=== PATIENT | male | born 1965 | race Caucasian/White ===

== ENCOUNTER 2025-06-25 14:04 | Outpatient (REF) | payer BC, SELFPAY ==
--- NOTE | 2025-06-25 | EMG_ITS ---
Chief complaint: Left foot drop Reason for referral: Foot drop, right foot Referred by:?Brian Cornejo Procedure done: Right lower extremity NCS/EMG Right tibial and peroneal motor studies were performed with the F-waves and tibial H response was obtained. Right superficial peroneal and sural sensory studies were performed an EMG needle examination was performed. Right peroneal and tibial motor responses were absent with absent F responses an H-reflex. On the sensory side, right superficial peroneal amplitude was somewhat diminished with slow conduction velocity in 30s. Sural response revealed normal amplitude and conduction velocity. Needle examination revealed fibs and positive sharp waves in tibialis anterior, medial gastrocs, short a biceps and vastus lateralis. Impression: Right lumbosacral plexopathy. If not done before, imaging of right lumbosacral plexus/sciatic areas recommended. MTDD
--- OUTSIDE RECORDS SUMMARY | 2025-06-25 17:18 | XMS_ITS | Clinical Summary ---
Author Organization [facility] Address [address] [place] [id number] Phone Care Team Providers Care Peoplesoft Analyst Name Role Phone Riri Blandon MD Primary Care Provider [phone] Allergies No known active allergies Medications No known medications Active Problems No known active problems Social History Tobacco Use Types Packs/Day Years Used Date Smoking Tobacco: Former Smokeless Tobacco: Never Alcohol Use Standard Drinks/Week Comments Yes 0 (1 standard drink = 0.6 oz pur e alcohol) very little Education Answer Date Recorded Are you interested in more education? Not on myriam e 01/14/2023 Are you concerned about learning? Not on file 01/14/2023 No 01/14/2023 No 01/14/2023 Digital Access Answer Date Recorded No 02/12/2023 No 02/12/2023 No 02/12/2023 Reliable internet access at home? Not on file 02/12/2023 Device with a working camera? Not on file Sex and Gender Information Value Date Recorded Sex Assigned at Male 06/03/2018 6:12 PM EDT Legal Sex Male 9:39 PM EDT Gender Identity Male 06/03/2018 6:12 PM EDT Sexual Orientation Not on file Last Filed Vital Signs Vital Sign Reading Time Taken Comments Blood Pressure 128/76 12/07/2021 10:24 AM EDT Pulse 69 12/07/2021 10:24 AM EDT Temperature 36.2 C (97.1 F) 12/07/2021 10:24 AM EDT Respiratory Rate 16 12/07/2021 10:24 AM EDT Oxygen Saturation 99% 12/07/2021 10:24 AM EDT Inhaled Oxygen Concentration - - Weight 89.8 kg (198 lb) 12/07/2021 10:24 AM EDT Height 180.3 cm (5' 11 ) 12/07/2021 10:24 AM EDT Body Mass Index 27.62 12/07/2021 10:24 AM EDT Plan of Treatment Health Maintenance Due Date Last Done Comments LIPID PANEL 1967 DEPRESSION SCREENING 1979 SMOKING Hx and SMOKELESS TOBACCO SCREENING 1980 HEPATITIS C SCREENING 1985 HIV ONE-TIME SCREENING (18-6 5 YEARS) 1985 COLOGUARD 2012 COLONOSCOPY 2012 COLORECTAL CANCER SCREENING 2012 FIT TEST 2012 FOBT 2012 SIGMOIDOSCOPY 2012 VIRTUAL COLONOSCOPY 2012 PNEUMOCOCCAL VACCINES (50+ years) (1 of 1 - PCV) 2017 ZOSTER VACCINES (1 of 2) 2017 INFLUENZA VACCINE (#1) 2025 2, 07/11/2019, 10/02/2012 COVID-19 VACCINE (2023-2 5 season) 2025 Adult Td,Tdap Booster 04/07/2026 04/07/2016 HEPATITIS A VACCINES Aged Out No long er eligible based on patient's age to complete this topic HIB VACCINES Aged Out No longer eligi ble based on patient's age to complete this topic MENINGOCOCCAL VACCINES (ACWY) Aged Out No longer eligible based on patient's age to complete this topic MENINGOCOCCAL VACCINES (B) Aged Out N o longer eligible based on patient's age to complete this topic Medical Devices Not on file [facility] POS HMO POS HMO POS HMO [place] [address] [place] [address] [address] [id number] [place] [address] HMO POS [facility] HMO POS [employer] [address] Care Teams Peoplesoft Analyst Relationship Specialty Start Date End Date Riri Blandon MD PCP - General Internal Medicine 10/28/21 Additional Source Comments The information contained in this document represents components of the legal health record. It is not the complete legal health record.[facility]
--- OUTSIDE RECORDS SUMMARY | 2025-06-25 17:18 | XMS_ITS | Clinical Summary ---
Author Organization [facility] [address] [facility] Address [address] [place], [place] Phone Care Team Providers Care Monitoring Analyst Name Role Phone Ge Interiano MD Primary Care Provider [phone] Allergies No known active allergies Medications diclofenac (VOLTAREN) 1 % topical gel 10/29/2021 Active dexAMETHasone (DECADRON) 4 mg tabletIndicatio ns:Right foot drop Take 1 tablet (4 mg total) by mouth 4 (four) times a day for 4 days. 16 each 05/23/2025 Active famotidine (Pepcid) 20 mg tabletIndicatio ns:Right foot drop Take 1 tablet (20 mg total) by mouth 2 (two) times a day for 7 days. Take while on steroids, to protect your stomach. Do not take NSAIDS while on the steroids. 14 each 05/23/2025 05/30/20 25 Active Problems Problem Noted Date Diagnosed Date Right foot drop 05/23/2025 Assessment & Plan (05/23/2025 4:34 PM EDT): Mr. Carter describes weakness in the right ankle since mid February. At first he had significant pain in the leg and a mixed L5 and S1 distribution. The pain has largely resolved but he does admit to some paresthesias in the lower extremity. His main complaint is weakness. He has been in physical therapy since February. On exam he has 5 out of 5 strength in all major muscle groups of the upper and lower extremities with the exception of right sided dorsiflexion which was 3 out of 5 and plantarflexion which was 4- out of 5. He was unable to stand up on the toes of the right foot alone. When he ambulated his right foot slapped. Deep tendon reflexes were 1-2+ and symmetric with the exception of the right ankle jerk which was absent. Recent x- rays of the lumbar spine from [facility] revealed mild degenerative changes with some loss of disc height at L5-S1. I am going to give him a prescription for dexamethasone with Pepcid for GI prophylaxis. I am ordering a stat MRI of the lumbar spine. I anticipate he will need an urgent discectomy. 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 09/20/2024 Overview (09/20/2024): EKG 11/2016 Herpes 08/02/2014 Encounters Date Type Department Care Team Description 05/28/2025 Telephone Neurosurgery [address] [phone] Brian Cornejo PA 05/27/2025 11:23 AM EDT - 05/27/2025 11:59 PM EDT Hospital Encounter [facility] MRI [address] [place] [id number] Right foot drop Discharge Disposition: Home or Self Care 05/27/2025 10:00 AM EDT Treatment Outpatient Rehabilitation - [address] [phone] Lucio Grullon, PT Right leg pain (Primary Dx); Calf muscle weakness 05/23/2025 2:30 PM EDT Consult [address] [phone] Brian Cornejo PA Steppage gait; Right foot drop 05/23/2025 11:00 AM EDT Treatment Outpatient Rehabilitation - [address] [phone] Lucio Grullon, PT Right leg pain (Primary Dx); Calf muscle weakness 05/21/2025 11:00 AM EDT Treatment Outpatient Rehabilitation - [place] [address] [place], [place] [phone] Phoebe Arriaga H, ALMOND HULLER Right leg pain (Primary Dx); Calf muscle weakness 05/16/2025 10:00 AM EDT Treatment Outpatient [address] [phone] Pohebe Arriaga H, ALMOND HULLER Right leg pain (Primary Dx); Calf muscle weakness 05/14/2025 10:30 AM EDT Treatment Outpatient [address] [phone] Phoebe Arriaga H, ALMOND HULLER Right leg pain (Primary Dx); Calf muscle weakness 05/09/2025 11:30 AM EDT Treatment Outpatient [address] [phone] Lucio Grullon, PT Right leg pain (Primary Dx); Calf muscle weakness 05/07/2025 11:30 AM EDT Treatment Outpatient [address] [phone] Phoebe Arriaga H, ALMOND HULLER Right leg pain (Primary Dx); Calf muscle weakness 05/03/2025 11:30 AM EDT Treatment Outpatient [address] [phone] Phoebe Arriaga H, ALMOND HULLER Right leg pain (Primary Dx); Calf muscle weakness 04/29/2025 11:00 AM EDT Evaluation Outpatient [address] [phone] Lucio Grullon, PT Right leg pain; Calf muscle weakness 04/29/2025 Plan of Care Documentation Outpatient [address] [phone] 04/05/2025 Telephone Adult Medicine [address] [phone] Glendy Velasquez NP 03/25/2025 10:48 AM EDT - 03/25/2025 11:59 PM EDT Hospital Encounter Radiology Department - [address] [phone] Calf muscle weakness Discharge Disposition: Home or Self Care from Last 3 Months Immunizations Immunization Administration Dates Next Due Influenza Quadravalent, MDCK , 0.5ml, preservative free (Flucelvax) 6mo and older 07/27/2022 Influenza trivalent, with pr eservative (Fluzone; Afluria) 6mo and older 07/11/2019,10/02/2012 PPD Test 04/12/2001 Tdap Tetanus diptheria acell ular pertussis (Boostrix; Adacel) 7yo and older 04/07/2016 Medical History Medical History Date Comments Red-green color blindness DX:Red -green color blindness Incomplete RBBB DX:Incomplete RB BB; COMMENT: EKG 11/2016 Family History Medical History Relation Name Comments Other: oliviachase limakhadra dz Paternal Grandmother Relation Name Status Comments Father Alive healthy Maternal Grandfather old age Maternal Grandmother old age Mother Alive healthy Paternal Grandfather old age Paternal Grandmother Olivia Taylor r Dis Sister Alive 1 sister age 34 , healthy Son Alive 2 sons ages 11 and 14, healthy Sebas and Tee Social History Tobacco Use Types Packs/Day Years Used Date Smoking Tobacco: Former Smokeless Tobacco: Former Tobacco Cessation:Counseling Given: Not Answered Alcohol Use Standard Drinks/Week Comments Not Asked 0 (1 standard drink = 0.6 oz pur e alcohol) Sex and Gender Information Value Date Recorded Sex Assigned at Not on file Legal Sex Male 4:46 AM EST Gender Identity Not on file Sexual Orientation Not on file Obstetrics History Last Filed Vital Signs Vital Sign Reading Time Taken Comments Blood Pressure 139/89 02/27/2025 4:46 PM EDT Pulse 78 02/27/2025 4:46 PM EDT Temperature 36.6 C (97.8 F) 02/27/2025 4:46 PM EDT Respiratory Rate 14 02/27/2025 4:46 PM EDT Oxygen Saturation 96% 02/27/2025 4:46 PM EDT Inhaled Oxygen Concentration - - Weight 83.9 kg (185 lb) 05/23/2025 3:04 PM EDT Height 180.3 cm (5' 11 ) 05/23/2025 3:04 PM EDT Body Mass Index 25.8 05/23/2025 3:04 PM EDT Plan of Treatment Health Maintenance Due Date Last Done Comments Colorectal Cancer Screening: Colonoscopy 1967 Hepatitis B Vaccines (1 of 3 - 19+ 3-dose series) 1986 Pneumococcal Vaccine: 50+ Years (1 of 1 - PCV) 2017 HIV Screening 08/28/2022 Social Influencers of Health Screening 08/28/2022 Depression Screening 09/19/2024 COVID-19 Vaccine (1 - 2023-2 5 season) 2025 Influenza Vaccine (#1) 2025 , 07/11/2019, 10/02/2012 Zoster Vaccines (2 of 2) 06/08/2025 04/13/2025 DTaP,Tdap,and Td Vaccines (2 - Td or Tdap) 04/07/2026 04/07/2016 Cholesterol Screening (Lipid Panel) 07/27/2027 07/27/2022 RSV Immunization Adult Patients (1 - 1-dose 75+ series) 2042 Hepatitis C Screening Completed 07/27/2022 HIB Vaccines Aged Out No longer eligi ble based on patient's age to complete this topic HPV Vaccines Aged Out No longer eligi ble based on patient's age to complete this topic Hepatitis A Vaccines Aged Out No long er eligible based on patient's age to complete this topic IPV Vaccines Aged Out No longer eligi ble based on patient's age to complete this topic MMR Vaccines Aged Out No longer eligi ble based on patient's age to complete this topic Meningococcal ACWY Vaccine Aged Out N o longer eligible based on patient's age to complete this topic Meningococcal B Vaccine Aged Out No l onger eligible based on patient's age to complete this topic RSV Immunization Patients Under 20 months Aged Out No longer eligible b ased on patient's age to complete this topic Varicella Vaccines Aged Out No longer eligible based on patient's age to complete this topic Procedures Procedure Name Priority Date/Time Associated Diagnosis Comments MR LUMBAR SPINE WO CONTRAST Routine 05/27/2025 12:40 PM EDT Right foot drop VAS US DUPLEX LOWER EXT VENOUS RIGHT STAT 03/25/2025 11:07 AM EDT Calf muscle weakness HM HEPATITIS C SCREENING Routine 07/27/2022 LIPID PANEL Routine 07/27/2022 from Last 3 Months or Most Recently Relevant to Health Maintenance Results * MR Lumbar Spine wo Contrast (05/27/2025 12:40 PM EDT) Anatomical Region Laterality Modality L-spine, Spine Magnetic Resonan ce 05/29/2025 2:43 PM EDT Impressions 05/29/2025 2:46 PM EDT Degenerative changes of the L5-S1 vertebral endplates eccentric to the left. Other less pronounced degenerative changes as detailed above. No high-grade spinal or foraminal stenosis. -------- FINAL REPORT -------- Dictated By: Pradip Malcolm Dictated Date: 05/29/2025 14:43 ET Assigned Physician: Pradip Malcolm Reviewed and Electronically Signed By: Pradip Malcolm Signed Date: 05/29/2025 14:46 ET Workstation ID: [id number] Transcribed By: Self Edit Transcribed Date: 05/29/2025 14:43 ET Narrative 05/29/2025 2:46 PM EDT PROCEDURE: MRI of the lumbar spine without contrast. TECHNIQUE: Multiplanar multisequence MRI of the lumbar spine without intravenous contrast administration. HISTORY: Low back pain, progressive neurologic deficit COMPARISON: Radiographs dated 03/18/2025. FINDINGS: The paraspinous soft tissues are unremarkable. No compression deformity. Modic endplate changes at L5-S1. No concerning marrow infiltrative lesion. Normal position of the conus at L1. Lumbar disc levels: L1-2: No significant disc or facet abnormality. No spinal or foraminal stenosis. L2-3: Mild endplate irregularity. Small anterior endplate osteophytes. No spinal or foraminal stenosis. L3-4: Minimal endplate irregularity with minimal anterior endplate osteophytes and minimal bilateral facet arthropathy. No spinal or foraminal stenosis. L4-5: Minimal endplate irregularity. Mild bilateral facet arthropathy. No spinal or foraminal stenosis. L5-S1: Moderate asymmetric left-sided disc space height loss and endplate irregularity. Small disc osteophyte complex eccentric to the left. Minimal bilateral facet arthropathy. Mild left foraminal stenosis. No spinal stenosis. Procedure Note Pradip Malcolm MD - 05/29/2025 PROCEDURE: MRI of the lumbar spine without contrast. TECHNIQUE: Multiplanar multisequence MRI of the lumbar spine withoutintravenous contrast administration. HISTORY: Low back pain, progressive neurologic deficit COMPARISON: Radiographs dated 03/18/2025. FINDINGS: The paraspinous soft tissues are unremarkable. No compression deformity. Modic endplate changes at L5-S1. No concerningmarrow infiltrative lesion. Normal position of the conus at L1. Lumbar disc levels: L1-2: No significant disc or facet abnormality. No spinal or foraminalstenosis. L2-3: Mild endplate irregularity. Small anterior endplate osteophytes.No spinal or foraminal stenosis. L3-4: Minimal endplate irregularity with minimal anterior endplateosteophytes and minimal bilateral facet arthropathy. No spinal orforaminal stenosis. L4-5: Minimal endplate irregularity. Mild bilateral facet arthropathy.No spinal or foraminal stenosis. L5-S1: Moderate asymmetric left-sided disc space height loss and endplateirregularity. Small disc osteophyte complex eccentric to the left.Minimal bilateral facet arthropathy. Mild left foraminal stenosis. Nospinal stenosis. IMPRESSION: Degenerative changes of the L5-S1 vertebral endplates eccentric to theleft. Other less pronounced degenerative changes as detailed above. Nohigh-grade spinal or foraminal stenosis. -------- FINAL REPORT -------- Dictated By: Pradip Malcolm Dictated Date: 05/29/2025 14:43 ET Assigned Physician: Pradip Malcolm Reviewed and Electronically Signed By: Pradip Malcolm Signed Date: 05/29/2025 14:46 ET Workstation ID: [id number] Transcribed By: Self Edit Transcribed Date: 05/29/2025 14:43 ET us Brian SILVA IMG MRI PROCEDURES Final Resu lt * Vascular US duplex lower extremity venous right (03/25/2025 11:07 AM EDT) Anatomical Region Laterality Modality Vascular, Abdomen Ultrasound 03/25/2025 11:2 5 AM EDT Impressions 03/25/2025 11:27 AM EDT No evidence of deep venous thrombosis in the right lower extremity. POS - [id number] -------- FINAL REPORT -------- Dictated By: Cary Cole Dictated Date: 03/25/2025 11:25 ET Assigned Physician: Cary Cole Reviewed and Electronically Signed By: Cary Cole Signed Date: 03/25/2025 11:27 ET Workstation ID: [id number] Transcribed By: Self Edit Transcribed Date: 03/25/2025 11:25 ET Narrative 03/25/2025 11:27 AM EDT EXAM: Limited extremity veins ultrasound HISTORY: Calf pain. COMPARISON: None FINDINGS: Duplex Doppler scanning of the deep venous system of the right lower extremity is performed. Scanning is performed from the proximal common femoral vein and greater saphenous confluence through the popliteal vein. All veins of the deep venous system are normally compressible. Normal Doppler flow is demonstrated within them. Augmentation maneuvers are normal. Calf veins are normally compressible. No popliteal cyst. Procedure Note Cary Cole MD - 03/25/2025 EXAM: Limited extremity veins ultrasound HISTORY: Calf pain. COMPARISON: None FINDINGS: Duplex Doppler scanning of the deep venous system of the right lowerextremity is performed. Scanning is performed from the proximal commonfemoral vein and greater saphenous confluence through the popliteal vein. All veins of the deep venous system are normally compressible. NormalDoppler flow is demonstrated within them. Augmentation maneuvers arenormal. Calf veins are normally compressible. No popliteal cyst. IMPRESSION: No evidence of deep venous thrombosis in the right lower extremity. POS - [id number] -------- FINAL REPORT -------- Dictated By: Cary Cole Dictated Date: 03/25/2025 11:25 ET Assigned Physician: Cary Cole Reviewed and Electronically Signed By: Cary Cole Signed Date: 03/25/2025 11:27 ET Workstation ID: [id number] Transcribed By: Self Edit Transcribed Date: 03/25/2025 11:25 ET Glendy Velasquez CARD SERVICES SPECIALIST CV VASCULAR PROCEDURES Final Result * Hepatitis C Screening (07/27/2022) Hepatitis C Screening Abstracted Historical Provider HEALTH MAINTENANCE Final Result * (ABNORMAL) Lipid panel (07/27/2022) LDL/HDL Ratio 3 0 - 4 Triglycerides 89 0 - 150 mg/dL Cholesterol 200 0 - 200 mg/dL HDL 64 >=40 mg/dL LDL Cholesterol 119(A) 0 - 100 mg/dL Blood Venous blood specimen / Unknown Historical Provider LAB BLOOD ORDERABLES Bruna l Result from Last 3 Months or Most Recently Relevant to Health Maintenance [place] [address] [place] [address] Care Teams Monitoring Analyst Relationship Specialty Start Date End Date Ge Interiano MD [address] [place] [phone] PCP - General Internal Medicine 06/23/21
== END 2025-06-25 14:05 | disposition home or self-care (01) ==
LOC: HO.NEURO 14:04
PROVIDERS: PCP Internal Medicine; Visit Provider Physician Assistant
DX: M21.371 Foot drop, right foot (principal); R53.1 Weakness
CPT/HCPCS: 95886; 95910

== ENCOUNTER → 2025-06-25 14:15 | Outpatient (BNV) | payer BC, SELFPAY | PROVIDERS: PCP Internal Medicine; Visit Provider Psychiatry & Neurology Neurology | DX: G54.1 Lumbosacral plexus disorders (principal) | CPT/HCPCS: 95886; 95909 ==

== ENCOUNTER 2025-06-27 11:04 | Outpatient (AMB) | payer BC, SELFPAY ==
--- NOTE | 2025-06-27 11:15 | A.OFFVIS_ITS ---
Intake Visit Reasons: RT Foot drop Allergies No Known Allergies Allergy (Verified 06/26/25 13:55) HPI Comments Details: The patient is a 60-year-old male presenting with right lower extremity weakness and foot drop. The symptoms began in early February, following a period without any preceding cold or illness. The patient reports a history of right-sided sciatica, possibly exacerbated by wearing a new gun belt. He noticed the initial symptom of tingling in the right lateral toes, which then developed into a weakness preventing calf raises. Pain was particularly significant in the hamstring area, impacting his sleep. Currently, although pain has decreased, functional impairment in the form of foot drop persists, affecting both dorsiflexion and plantarflexion. Examination reveals some loss of muscle function raising concerns about neural involvement. The patient denies significant sensory loss apart from decreased vibration perception on the affected side. Despite a normal lumbosacral spine MRI and EMG without root problem involvement, the examination signified plexus involvement. A family history includes ALS with known genetic SOD1 mutations, though the patient hasn't disclosed personal genetic test results. A follow-up MRI is scheduled to further assess the cause of these neurological symptoms. [facility] Medical History (Updated 06/27/25 @ 12:29 by Gloria Maldonado MD) Red-green color blindness Incomplete RBBB Review of Systems Const Details: - Musculoskeletal: Reports right-sided lower extremity weakness and foot drop. - Neurological: Reports tingling in right lateral toes, inability to perform calf raises on the right, and falling episodes. Denies sensation loss except slightly decreased vibration perception. - Respiratory: Denies cold or flu symptoms. - Genitourinary: Denies bladder control issues. Physical Exam Neuro Other: Mental Status: Alert and oriented to person, place, and time. Normal attention. Normal spontaneous speech, fluency, and comprehension. No obvious issues with mood and memory. Affect is depressed. Cranial Nerves: CN II: Visual campbell full to confrontation, visual acuity intact. CN III, IV, : Pupils equal, round, reactive to light and accommodation. Extraocular movements are normal. CN V: Facial sensation is normal. CN VII: Facial movements symmetrical. CN VIII: Hearing intact to bedside conversation is normal. CN IX, X: Palate elevates symmetrically. CN XI: Shoulder shrug and head turn symmetrical. CN XII: Tongue midline without atrophy or fasciculations. Motor: Minimal to no strength in right extensor hallucis, foot dorsiflexion, plantars flexion, eversion, and inversion. Knee reflexes are 1+, left ankle reflexes 1+ while right is absent with flexor plantars. Sensory: Vibratory sensation is decreased in right toe while joint position sensation is present. Extrapyramidal: Full facial expressions and blinking. No rigidity. Movements are appropriate with no tremor or abnormality. Speech: Normal; no dysarthria or tremor. Assessment & Plan Assessment & Plan (1) Lumbosacral plexopathy: Comment: EMG/NCS R leg at [facility] in Jun 2025: R lumbar radiculopathy/sciatic neuropathy MRI LS spine WO at [facility] in May 2025: No sig pathology Code(s): G54.1 - Lumbosacral plexus disorders Category: Medical Plan Impression recommendations: 60 years old man with family history of ALS with presence of SOD 1 mutation in relatives developed right hip pain and then weakness for right foot with a footdrop during last few months. His examination revealed weakness in both tibial and peroneal supplied muscles, and an EMG nerve conduction study suggested a plexus lesion. An MRI was requested to rule out a mechanical lesion. I also noted, that he did not have any laboratories done for last 3 years. This would raise multiple possibilities as far as etiology of this problem is concerned including metabolic, infectious, and inflammatory in nature. He was educated about all that and tests were ordered. Orders: Orders MR hip RT wo/w con Today G54.1 - Lumbosacral plexus disorders Complete Blood Count Auto Diff Today G54.1 - Lumbosacral plexus disorders Liver Panel Today G54.1 - Lumbosacral plexus disorders Immunofixation Pnl, Serum Today G54.1 - Lumbosacral plexus disorders MR pelvis wo/w con Today G54.1 - Lumbosacral plexus disorders Basic Metabolic Panel Today G54.1 - Lumbosacral plexus disorders Erythrocyte Sedimentation Rate Today G54.1 - Lumbosacral plexus disorders Lyme IgG/IgM w/reflex to WB Today G54.1 - Lumbosacral plexus disorders HIV 1 Resistance Proviral DNA Today G54.1 - Lumbosacral plexus disorders Syphilis Screen Today G54.1 - Lumbosacral plexus disorders Coding Level of Care Code New Pt Level 5 (31470) Diagnoses Lumbosacral plexopathy G54.1
== END 2025-06-27 12:16 | disposition home or self-care (01) ==
LOC: HO.HSM 11:05
PROVIDERS: PCP Internal Medicine; Visit Provider Psychiatry & Neurology Neurology
DX: G54.1 Lumbosacral plexus disorders (principal)
CPT/HCPCS: 99203

== ENCOUNTER 2025-06-27 11:04 | Outpatient (REF) | payer BC, SELFPAY ==
--- OUTSIDE RECORDS SUMMARY | 2025-06-27 12:59 | XMS_ITS | Encounter Summary ---
Author Organization [facility] Address [address] [place] [address] Care Team Providers Care Casualty Underwriter Name Role Phone Ge Interiano MD Primary Care Provider [phone] Encounter Details Date Type Department Care Team (Late st Contact Info) Description 06/26/2025 Telephone Neurosurgery [facility] [address] [place] [address] Brian Cornejo PA [address] [facility] [address] [place] [address] Social History Tobacco Use Types Packs/Day Years Used Date Smoking Tobacco: Former Smokeless Tobacco: Former Alcohol Use Standard Drinks/Week Comments Not Asked 0 (1 standard drink = 0.6 oz pur e alcohol) Sex and Gender Information Value Date Recorded Sex Assigned at Not on file Legal Sex Male 4:46 AM EST Gender Identity Not on file Sexual Orientation Not on file documented as of this encounter Progress Notes * RICARDO Lopez - 06/26/2025 11:12 AM EDT The patient to let him know that I put in an order for an MRI of the pelvis to look for a cause forhis lumbar plexopathy I also let him know that I put in a referral for him to be seen by Dr. Smith per the recommendation. documented in this encounter Plan of Treatment Not on file documented as of this encounter Visit Diagnoses Not on filedocumented in this encounter Care Teams Casualty Underwriter Relationship Specialty Start Date End Date Ge Interiano MD [address] [place] [phone] PCP - General Internal Medicine 06/23/21 documented as of this encounter
--- OUTSIDE RECORDS SUMMARY | 2025-06-27 12:59 | XMS_ITS | Clinical Summary ---
Author Organization [facility] Address [address] [place] [address] Phone Care Team Providers Care Valve Technician Name Role Phone Riri Blandon MD Primary Care Provider [phone] Allergies No known active allergies Medications No [...] topic Medical Devices Not on file Insurance [facility] POS HMO POS HMO POS HMO POS HMO [place] [address] [place] [address] [place] [id number] [place] [address] HMO POS [facility] HMO POS [place] [address] Care Teams Valve Technician Relationship Specialty Start Date End Date Riri Blandon MD PCP - General Internal Medicine 10/28/21 Additional Source Comments The information contained in this document represents components of the legal health record. It is not the complete legal health record.[facility]
--- OUTSIDE RECORDS SUMMARY | 2025-06-27 12:59 | XMS_ITS | Clinical Summary ---
Author Organization [facility] [address] [facility] Address [address] [place], [place] Phone Care Team Providers Care Business Applications Manager Name Role Phone Ge Interiano MD Primary Care Provider [phone] Allergies No known active allergies Medications diclofenac [...] x- rays of the lumbar spine from [facility] revealed mild degenerative changes with some loss [...] Encounters Date Type Department Care Team Description 06/26/2025 Telephone Neurosurgery [address] [phone] Brian Cornejo PA 05/28/[address] [phone] Brian Cornejo PA 05/27/2025 11:23 AM EDT - 05/27/2025 11:59 PM EDT Hospital Encounter [facility] MRI [address] [place] [address] Right foot drop Discharge Disposition: Home or Self Care 05/27/2025 10:00 AM EDT Treatment Outpatient Rehabilitation - [address] [phone] Lucio Grullon, PT Right leg pain (Primary Dx); Calf muscle weakness 05/23/2025 2:30 PM EDT Consult [address] [phone] Brian Cornejo PA Steppage gait; Right foot drop 05/23/2025 11:00 AM EDT Treatment Outpatient Rehabilitation - [address] [phone] TaishaoLucio, PT Right leg pain (Primary Dx); Calf muscle weakness 05/21/2025 11:00 AM EDT Treatment Outpatient [address] [phone] Kamillas, Phoebe H, PUBLIC POLICY ASSOCIATE Right leg pain (Primary Dx); Calf muscle weakness 05/16/2025 10:00 AM EDT Treatment Outpatient [address] [phone] Lodinoras, Phoebe H, PUBLIC POLICY ASSOCIATE Right leg pain (Primary Dx); Calf muscle weakness 05/14/2025 10:30 AM EDT Treatment Outpatient [address] [phone] Lodinoras, Phoebe H, PUBLIC POLICY ASSOCIATE Right leg pain (Primary Dx); Calf muscle weakness 05/09/2025 11:30 AM EDT Treatment Outpatient [address] [phone] DeflsoniaoLucio, PT Right leg pain (Primary Dx); Calf muscle weakness 05/07/2025 11:30 AM EDT Treatment Outpatient [address] [phone] Kamillas, Phoebe H, PUBLIC POLICY ASSOCIATE Right leg pain (Primary Dx); Calf muscle weakness 05/03/2025 11:30 AM EDT Treatment Outpatient [address] [phone] Kamillas Phoebe H, PUBLIC POLICY ASSOCIATE Right leg pain (Primary Dx); Calf muscle weakness 04/29/2025 11:00 AM EDT Evaluation Outpatient [address] [phone] Deflsoniao Lucio, PT Right leg pain; Calf muscle weakness 04/29/2025 Plan of Care Documentation Outpatient [address] [phone] 04/05/2025 Telephone Adult Medicine [address] [phone] Glendy Velasquez NP from Last 3 Months Immunizations Immunization Administration [...] History Medical History Relation Name Comments Other: olivia mijares dz Paternal Grandmother Relation Name Status Comments Father Alive healthy Maternal Grandfather old age Maternal Grandmother old age Mother Alive healthy Paternal Grandfather old age Paternal Grandmother Olivia Geh r Dis Sister Alive 1 sister age [...] 05/27/2025 12:40 PM EDT Right foot drop HM HEPATITIS C SCREENING Routine 07/27/2022 LIPID [...] Signed Date: 05/29/2025 14:46 ET Workstation ID: [id number] Transcribed By: Self Edit Transcribed Date: 05/29/2025 [...] Signed Date: 05/29/2025 14:46 ET Workstation ID: [id number] Transcribed By: Self Edit Transcribed Date: 05/29/2025 14:43 ET Brian SILVA IMG MRI PROCEDURES Final Resu lt * Hepatitis C Screening (07/27/2022) [facility] Hepatitis C Screening Abstracted Historical Provider HEALTH [...] Most Recently Relevant to Health Maintenance Insurance [facility] Care Teams Business Applications Manager Relationship Specialty Start Date End Date Ge Interiano MD [address] [place] [phone] PCP - General Internal Medicine 06/23/21
[2025-06-27 13:15] LABS: MANUAL DIFF FLAG NO
[2025-06-27 14:11] LABS: Hematocrit 47.6 % (42.0-52.0); Hemoglobin 15.8 g/dl (14.0-18.0); Imm Gran Abs Auto 0.02 X10*3/uL (0.00-0.03); Imm Gran Pct Auto 0.3 % (0.0-0.4); Lymphocytes Absolute Auto 1.1 X10*3/uL (1.2-4.9); Mean Corpuscular HGB Conc 33.2 g/dl (31.0-36.0); Mean Corpuscular Hemoglobin 29.6 pg (27.0-33.0); Mean Corpuscular Volume 89.3 fL (80.0-98.0); NRBC Abs Auto 0.000 X10*3/uL (0.0-0.012); NRBC Pct Auto 0.0 /100WBC (0.0-0.2); Platelet Count 220 X10*3/uL (160-400); Red Blood Count 5.33 X10*6/uL (4.60-5.80); White Blood Count 5.9 X10*3/uL (4.8-10.8)
[2025-06-27 14:34] LABS: Alanine Aminotransferase 20 U/L (0-40); Albumin Level 4.6 g/dL (3.5-5.0); Alkaline Phosphatase 67 U/L (39-117); Anion Gap 12 (12-20); Aspartate Amino Transferase 34 U/L (5-37); Blood Urea Nitrogen 17 mg/dL (9-16); Calcium 9.7 mg/dL (8.4-10.2); Carbon Dioxide 28 mmol/L (22-29); Chloride 106 mmol/L (96-108); Estimated Glomerular Filt Rate > 60; Potassium 4.4 mmol/L (3.3-5.1); Sodium 142 mmol/L (135-145); Total Protein 7.3 g/dL (6.5-8.0)
[2025-06-28 08:30] LABS: Syphilis Screen Nonreactive (Nonreactive)
[2025-06-28 09:34] LABS: Lyme Abs Screen <0.90 index
== END 2025-06-27 11:05 | disposition home or self-care (01) ==
LOC: HO.LAB 11:04
PROVIDERS: PCP Internal Medicine; Visit Provider Psychiatry & Neurology Neurology
DX: G54.1 Lumbosacral plexus disorders (principal); Z01.84 Encounter for antibody response examination; M25.551 Pain in right hip; R29.898 Other symptoms and signs involving the musculoskeletal system
CPT/HCPCS: 36415; 80048; 80076; 82784; 85025; 85652; 86334; 86617; 86618; 86780

== ENCOUNTER 2025-07-04 12:15 | Outpatient (AMB) | payer BC, SELFPAY ==
--- OUTSIDE RECORDS SUMMARY | 2025-07-02 14:38 | XMS_ITS | Encounter Summary ---
Author Organization [facility] Address [address] [place] [address] Care Team Providers Care Coastal And Estuary Specialist Name Role Phone Ge Interiano MD Primary Care Provider [phone] Reason for Referral * Imaging (Routine) - Authorized Specialty Diagnoses / Procedures Referred By Rafael caldera Referred To Contact Radiology Diagnoses Right foot drop Procedures MR Pelvis wo and w Contrast Brian Cornejo PA [address] [address] Phone: tel: fax: [facility] [address] [place] [address] Phone: tel: Referral ID Status Reason Start Date Expiration Date V isits Requested Visits Authorized [id number] Authorized 06/26/2025 06/26/2026 1 1 Reason for Visit * Imaging (Routine) - Authorized Specialty Diagnoses / Procedures Referred By Rafael caldera Referred To Contact Radiology Diagnoses Right foot drop Procedures MR Pelvis wo and w Contrast Brian Cornejo PA [address] [address] Phone: tel: fax: [facility] MRI [address] [place] [address] Phone: tel: Referral ID Status Reason Start Date Expiration Date V isits Requested Visits Authorized [id number] Authorized 06/26/2025 06/26/2026 1 1 Encounter Details Date Type Department Care Team (Latest Contact Info) Description 07/02/2025 2:38 PM EDT - 07/02/2025 11:59 PM EDT Hospital Encounter [facility] MRI [address] [place] [address] Right foot drop Discharge Disposition: Home or Self Care Social History Tobacco Use Types Packs/Day Years [...] on file documented as of this encounter Medications at Time of Discharge Medication Sig Dispense Quantity Refills Last Filled Start D ate End Date diclofenac (VOLTAREN) 1 % topical gel 10/29/2021 documented as of this encounter Discharge Disposition Disposition Code Departure Means Destination Home or Self Care documented in this encounter Plan of Treatment Not on file documented as of this encounter Procedures Procedure Name Priority Date/Time Associated Diagnosis Comments MR PELVIS WO AND W CONTRAST Routine 07/02/2025 4:26 PM EDT Right foot drop documented in this encounter Results * MR Pelvis wo and w Contrast (07/02/2025 4:26 PM EDT) Anatomical Region Laterality Modality Pelvis, Body Magnetic Resonan ce 07/04/2025 1:48 PM EDT Impressions 07/04/2025 2:04 PM EDT Normal MRI appearance of the sacral plexus. Mild contour irregularity with adjacent marrow signal abnormality and enhancement in the mid sacrum, extending into both sacral ala. The possibility of a subtle nondisplaced fracture is raised. Consider further evaluation with CT to better define regional bony detail. -------- FINAL REPORT -------- Dictated By: Pradip Malcolm Dictated Date: 07/04/2025 13:48 ET Assigned Physician: Pradip Malcolm Reviewed and Electronically Signed By: Pradip Malcolm Signed Date: 07/04/2025 14:04 ET Workstation ID: [id number] Transcribed By: Self Edit Transcribed Date: 07/04/2025 13:48 ET Narrative 07/04/2025 2:04 PM EDT PROCEDURE: Contrast enhanced MRI of the pelvis. TECHNIQUE: Multiplanar multisequence MRI of the pelvis with and without intravenous contrast administration. IV contrast dose: 15 mL Dotarem from a 15 mL vial with 0 mL discarded. HISTORY: right foot drop COMPARISON: MRI of the lumbar spine dated 05/27/2025. FINDINGS: The nerve roots of the sacral plexus are normal in signal. There is no abnormal enhancement and no compressing mass or fluid collection. There is mild edema in the lower lumbar and sacral paraspinous musculature, left greater than right. The pelvic musculature is normal. Prostate gland is mildly enlarged. Urinary bladder is normal. There are a few scattered sigmoid diverticula. No pelvic lymphadenopathy. Incidental note of a small fat-containing right inguinal hernia. Small low signal lesion in the left femoral neck, probably a bone island. No pelvic marrow signal abnormality. Small marginal osteophytes in both hips. The sacrum appears slightly irregular in contour at the S2-3 level. There is ill-defined irregular T2 hyperintensity and T1 hypointensity in the adjacent marrow space, extending into both sacral ala and associated enhancement following contrast administration. Partially visible degenerative changes of the lumbar spine, fully detailed in the prior dedicated MRI lumbar spine report. Procedure Note Pradip Malcolm MD - 07/04/2025 PROCEDURE: Contrast enhanced MRI of the pelvis. TECHNIQUE: Multiplanar multisequence MRI of the pelvis with and withoutintravenous contrast administration. IV contrast dose: 15 mL Dotarem from a 15 mL vial with 0 mL discarded. HISTORY: right foot drop COMPARISON: MRI of the lumbar spine dated 05/27/2025. FINDINGS: The nerve roots of the sacral plexus are normal in signal. There is noabnormal enhancement and no compressing mass or fluid collection. There is mild edema in the lower lumbar and sacral paraspinousmusculature, left greater than right. The pelvic musculature is normal. Prostate gland is mildly enlarged. Urinary bladder is normal. There area few scattered sigmoid diverticula. No pelvic lymphadenopathy. Incidental note of a small fat-containing right inguinal hernia. Small low signal lesion in the left femoral neck, probably a bone island.No pelvic marrow signal abnormality. Small marginal osteophytes in both hips. The sacrum appears slightly irregular in contour at the S2-3 level. Thereis ill-defined irregular T2 hyperintensity and T1 hypointensity in theadjacent marrow space, extending into both sacral ala and associatedenhancement following contrast administration. Partially visible degenerative changes of the lumbar spine, fully detailedin the prior dedicated MRI lumbar spine report. IMPRESSION: Normal MRI appearance of the sacral plexus. Mild contour irregularity with adjacent marrow signal abnormality andenhancement in the mid sacrum, extending into both sacral ala. Thepossibility of a subtle nondisplaced fracture is raised. Consider furtherevaluation with CT to better define regional bony detail. -------- FINAL REPORT -------- Dictated By: Pradip Malcolm Dictated Date: 07/04/2025 13:48 ET Assigned Physician: Pradip Malcolm Reviewed and Electronically Signed By: Pradip Malcolm Signed Date: 07/04/2025 14:04 ET Workstation ID: [id number] Transcribed By: Self Edit Transcribed Date: 07/04/2025 13:48 ET Brian SILVA IMJessy MRI PROCEDURES Final Resu lt documented in this encounter Visit Diagnoses Diagnosis Right foot drop Other acquired deformity of ankle and foot documented in this encounter Administered Medications Inactive Administered Medications - up to 3 most recent administrations Medication Order MAR Action Action Date Dose Rate Site gadoterate meglumine (CLARISCAN, DOTAREM) injection 15 mL 15 mL, intravenous, Once in imaging, Starting on Tue07/02/25 at 1626, For 1 dose Given 07/02/2025 4:27 PM EDT 15 mL documented in this encounter Orders Medications Ordered That Al ht Not Have Been Administered Count Last Ordered Date First Ordered Date gadoterate meglumine (TERRELL CAN, DOTAREM) injection 15 mL 1 07/02/2025 documented in this encounter Care Teams Coastal And Estuary Specialist Relationship Specialty Start Date End Date Ge Interiano MD [address] [place] [phone] PCP - General Internal Medicine 06/23/21 documented as of this encounter
--- NOTE | 2025-07-04 12:52 | MHC.OFFVIS ---
Intake Visit Reasons: mri review Okay per PARISHK to double book Allergies No Known Allergies Allergy (Verified 06/26/25 13:55) HPI Comments Details: The patient is a 60-year-old male presenting with right lower extremity weakness and foot drop. The symptoms began in early February, following a period without any preceding cold or illness. The patient reports a history of right-sided sciatica, possibly exacerbated by wearing a new gun belt. He noticed the initial symptom of tingling in the right lateral toes, which then developed into a weakness preventing calf raises. His EMG nerve conduction study revealed findings suggestive of right lumbosacral plexopathy. Previously he had an MRI of lumbosacral spine that did not reveal any significant root pathology. MRI of pelvis was done and he was here after that. [facility] Medical History (Updated 07/05/25 @ 11:52 by Gloria Maldonado MD) Red-green color blindness Incomplete RBBB Review of Systems Const Details: Constitutional:?No fever, chills, fatigue, weight loss, or night sweats. HEENT:?No headache, vision changes, hearing loss, nasal congestion, sore throat. Neurological:? Right leg weakness. Psychiatric:? Depressed mood. Endocrine:?No heat/cold intolerance, polydipsia, polyuria, or hair/skin changes. Hematologic/Lymphatic:?No easy bruising, bleeding, or lymphadenopathy. Integumentary (Skin):?No rash, lesions, itching, or color changes. ? Physical Exam Neuro Other: Mental Status: Alert and oriented to person, place, and time. Normal attention. Normal spontaneous speech, fluency, and comprehension. No obvious issues with mood and memory. Affect is appropriate. Cranial Nerves: CN II: Visual campbell full to confrontation, visual acuity intact. CN III, IV, : Pupils equal, round, reactive to light and accommodation. Extraocular movements are normal. CN V: Facial sensation is normal. CN VII: Facial movements symmetrical. CN VIII: Hearing intact to bedside conversation is normal. CN IX, X: Palate elevates symmetrically. CN XI: Shoulder shrug and head turn symmetrical. CN XII: Tongue midline without atrophy or fasciculations. He came in a wheelchair but was able to stand up with the assistance. Right leg was still weak. Extrapyramidal: Full facial expressions and blinking. No rigidity. Movements are appropriate with no tremor or abnormality. Speech: Normal; no dysarthria or tremor. Extrem Other: Right testes was larger than left. There is right umbilical area mass. Assessment & Plan Assessment & Plan (1) Motor neuron disease: Comment: MR Pelvis in [place] in Jun 2025: No sign of LS plexus lesion. 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 To answer this question in more definitive terms, I would have to do more extensive EMG nerve conduction study. I had a conversation with him today explaining the situation. He was most afraid of this possibility because of his family history. He was also depressed and I would start him on an antidepressant and would arrange further testing in her lab. Orders: Orders NE nerve conduction velocity Today G12.20 - Motor neuron disease, unspecified NE electromyogram (EMG) Today G12.20 - Motor neuron disease, unspecified Medications: New sertraline 50 mg PO DAILY 90 tabs 0RF Coding Level of Care Code Est Pt Level 5 (99188) Diagnoses Motor neuron disease G12.20
--- OUTSIDE RECORDS SUMMARY | 2025-07-04 15:27 | XMS_ITS | Clinical Summary ---
Author Organization [facility] [address] [facility] Address [address] [place], [place] Phone Care Team Providers Care Edge Polisher Name Role Phone Ge Interiano MD Primary Care Provider [phone] Allergies No known active allergies Medications diclofenac (VOLTAREN) 1 % topical gel 10/29/2021 Active dexAMETHasone (DECADRON) 4 mg tabletIndication s:Right foot drop Take 1 tablet (4 mg total) by mouth 4 (four) times a day for 4 days. 16 each 05/23/2025 Active Active Problems Problem Noted Date Diagnosed Date [...] x- rays of the lumbar spine from [facility] revealed mild degenerative changes with some [...] Encounters Date Type Department Care Team Description 07/02/2025 2:38 PM EDT - 07/02/2025 11:59 PM EDT Hospital Encounter [facility] MRI [address] [place] [address] Right foot drop Discharge Disposition: Home or Self Care 06/26/2025 Telephone Neurosurgery [address] [phone] Brian Cornejo PA 05/28/[address] [phone] Brian Cornejo PA 05/27/2025 11:23 AM EDT - 05/27/2025 11:59 PM EDT Hospital Encounter [facility] MRI [address] [place] [address] Right foot drop Discharge Disposition: Home or Self Care 05/27/2025 10:00 AM EDT Treatment Outpatient Rehabilitation - [address] [phone] Lucio Grullon, PT Right leg pain (Primary Dx); Calf muscle weakness 05/23/2025 2:30 PM EDT Consult [address] [phone] Brian Cornejo PA Steppage gait; Right foot drop 05/23/2025 11:00 AM EDT Treatment Outpatient Rehabilitation - [address] [phone] Lucoi Grullon, PT Right leg pain (Primary Dx); Calf muscle weakness 05/21/2025 11:00 AM EDT Treatment Outpatient [address] [phone] Phoebe Arriaga H, INSTRUCTIONAL SUPPORT SERVICES DIRECTOR Right leg pain (Primary Dx); Calf muscle weakness 05/16/2025 10:00 AM EDT Treatment Outpatient [address] [phone] KamillasPhoebe H, INSTRUCTIONAL SUPPORT SERVICES DIRECTOR Right leg pain (Primary Dx); Calf muscle weakness 05/14/2025 10:30 AM EDT Treatment Outpatient [address] [phone] Phoebe Arriaga H, INSTRUCTIONAL SUPPORT SERVICES DIRECTOR Right leg pain (Primary Dx); Calf muscle weakness 05/09/2025 11:30 AM EDT Treatment Outpatient [address] [phone] Lucio Grullon, PT Right leg pain (Primary Dx); Calf muscle weakness 05/07/2025 11:30 AM EDT Treatment Outpatient [address] [phone] Phoebe Arriaga H, INSTRUCTIONAL SUPPORT SERVICES DIRECTOR Right leg pain (Primary Dx); Calf muscle weakness 05/03/2025 11:30 AM EDT Treatment Outpatient [address] [phone] Phoebe Arriaga H, INSTRUCTIONAL SUPPORT SERVICES DIRECTOR Right leg pain (Primary Dx); Calf muscle weakness 04/29/2025 11:00 AM EDT Evaluation Outpatient [address] [phone] Lucio Grullon, PT Right leg pain; Calf muscle weakness 04/29/2025 Plan of Care Documentation Outpatient [facility] - [address] [phone] 04/05/2025 Telephone Adult Medicine [address] [phone] Glendy Velasquez NP from Last 3 Months [...] Medical History Relation Name Comments Other: olivia luquebryant dz Paternal Grandmother Relation Name Status Comments [...] 07/02/2025 4:26 PM EDT Right foot drop MR LUMBAR SPINE WO CONTRAST Routine 05/27/2025 12:40 PM EDT Right foot drop HEPATITIS C SCREENING Routine 07/27/2022 LIPID PANEL Routine 07/27/2022 from Last 3 Months or Most Recently Relevant to Health Maintenance Results * MR Pelvis wo and w [...] Signed Date: 07/04/2025 14:04 ET Workstation ID: [id number] Transcribed By: Self Edit Transcribed Date: 07/04/2025 [...] Signed Date: 07/04/2025 14:04 ET Workstation ID: [id number] Transcribed By: Self Edit Transcribed Date: 07/04/2025 13:48 ET Brian SILVA IMG MRI PROCEDURES Final Resu lt * MR Lumbar Spine wo Contrast (05/27/2025 [...] Signed Date: 05/29/2025 14:46 ET Workstation ID: [id number] Transcribed By: Self Edit Transcribed Date: 05/29/2025 [...] Signed Date: 05/29/2025 14:46 ET Workstation ID: [id number] Transcribed By: Self Edit Transcribed Date: 05/29/2025 14:43 ET Brian SILVA [facility] MRI PROCEDURES Final Resu lt * Hm Hepatitis C Screening (07/27/2022) Hepatitis C Screening Abstracted Historical Provider HEALTH MAINTENANCE Final Result * (ABNORMAL) Lipid panel (07/27/2022) LDL/HDL Ratio 3 0 - 4 Triglycerides 89 0 - 150 mg/dL Cholesterol 200 0 - 200 mg/dL HDL 64 >=40 mg/dL LDL Cholesterol 119(A) 0 - 100 mg/dL Blood Venous blood specimen / Unknown us Historical Provider LAB BLOOD ORDERABLES Bruna l Result from Last 3 Months or Most Recently Relevant to Health Maintenance Insurance [facility] Care Teams Edge Polisher Relationship Specialty Start Date End Date Ge Interiano MD [address] [place] [phone] PCP - General Internal Medicine 06/23/21
== END 2025-07-04 16:08 | disposition home or self-care (01) ==
LOC: HO.HSM 12:16
PROVIDERS: PCP Internal Medicine; Visit Provider Psychiatry & Neurology Neurology
DX: G12.20 Motor neuron disease, unspecified (principal)
CPT/HCPCS: 99214

== ENCOUNTER 2025-07-12 10:08 | Outpatient (REF) | payer BC, SELFPAY ==
--- OUTSIDE RECORDS SUMMARY | 2025-07-12 11:28 | XMS_ITS | Clinical Summary ---
Author Organization [facility] Address [address] [place] [address] Phone Care Team Providers Care Communication Signals Intelligence Name Role Phone Riri Blandon MD Primary Care Provider [phone] Allergies No known active allergies Medications No [...] (#1) 2025 2, 07/11/2019, 10/02/2012 COVID-19 VACCINE (1 - 2024-2 6 season) 2025 Adult Td,Tdap Booster 04/07/2026 04/07/2016 RSV VACCINE (1 - 1-dose 75+ series) 2042 HEPATITIS A VACCINES Aged Out No long [...] topic Medical Devices Not on file [facility] [place] [address] [place] [id number] HMO POS HMO POS HMO [place] [address] [place] [id number] HMO POS [facility] HMO POS [place] [address] Care Teams Communication Signals Intelligence Relationship Specialty Start Date End Date Riri Blandon MD PCP - General Internal Medicine 2/9/22 Additional Source Comments The information contained in this document represents components of the legal health record. It is not the complete legal health record.[facility]
--- OUTSIDE RECORDS SUMMARY | 2025-07-12 11:28 | XMS_ITS | Clinical Summary ---
Author Organization [facility] [address] [facility] Address [address], [place] Phone Care Team Providers Care Lard Refiner Name Role Phone Ge Interiano MD Primary Care Provider [phone] Allergies No known active allergies Medications diclofenac [...] x- rays of the lumbar spine from [facility] revealed mild degenerative changes with some loss [...] Encounters Date Type Department Care Team Description 07/04/[address] [phone] Brian Cornejo PA 07/02/2025 2:38 PM EDT - 07/02/2025 11:59 PM EDT Hospital Encounter [facility] MRI [address] [place] [address] Right foot drop Discharge Disposition: Home or Self Care 06/26/[address] [phone] Brian Cornejo PA 05/28/[address] [phone] Brian Cornejo PA 05/27/2025 11:23 AM EDT - 05/27/2025 11:59 PM EDT Hospital Encounter [facility] MRI [address] [place] [address] Right foot drop Discharge Disposition: Home or Self Care 05/27/2025 10:00 AM EDT Treatment Outpatient Rehabilitation [address] [phone] Lucio Grullon, PT Right leg pain (Primary Dx); Calf muscle weakness 05/23/2025 2:30 PM EDT Consult Neurosurgery [address] [phone] Brian Cornejo PA Steppage gait; Right foot drop 05/23/2025 11:00 AM EDT Treatment Outpatient [address] [phone] Lucio Grullon, PT Right leg pain (Primary Dx); Calf muscle weakness 05/21/2025 11:00 AM EDT Treatment Outpatient [address] [phone] Phoebe Arriaga H, DRAFTSPERSON Right leg pain (Primary Dx); Calf muscle weakness 05/16/2025 10:00 AM EDT Treatment Outpatient [address] [phone] Phoebe Arriaga H, DRAFTSPERSON Right leg pain (Primary Dx); Calf muscle weakness 05/14/2025 10:30 AM EDT Treatment Outpatient [address] [phone] Phoebe Arriaga H, DRAFTSPERSON Right leg pain (Primary Dx); Calf muscle weakness 05/09/2025 11:30 AM EDT Treatment Outpatient [address] [phone] Lucio Grullon, PT Right leg pain (Primary Dx); Calf muscle weakness 05/07/2025 11:30 AM EDT Treatment Outpatient [address] [phone] Phoebe Arriaga H, DRAFTSPERSON Right leg pain (Primary Dx); Calf muscle weakness 05/03/2025 11:30 AM EDT Treatment Outpatient [address] [phone] Phoebe Arriaga H, DRAFTSPERSON Right leg pain (Primary Dx); Calf muscle weakness 04/29/2025 11:00 AM EDT Evaluation Outpatient [address] [phone] Lucio Grullon, PT Right leg pain; Calf muscle weakness 04/29/2025 Plan of Care Documentation Outpatient Rehabilitation - [address] [phone] from Last 3 Months Immunizations Immunization Administration [...] Signed Date: 07/04/2025 14:04 ET Workstation ID: [id number] Transcribed By: Self Edit Transcribed Date: 07/04/2025 [...] Signed Date: 07/04/2025 14:04 ET Workstation ID: [id number] Transcribed By: Self Edit Transcribed Date: 07/04/2025 [...] Signed Date: 05/29/2025 14:46 ET Workstation ID: [id number] Transcribed By: Self Edit Transcribed Date: 05/29/2025 [...] Signed Date: 05/29/2025 14:46 ET Workstation ID: [id number] Transcribed By: Self Edit Transcribed Date: 05/29/2025 14:43 ET Brian [facility]IL[facility] MRI PROCEDURES Final Resu lt * Hm Hepatitis C Screening (07/27/2022) Hepatitis C Screening Abstracted us Historical Provider HEALTH MAINTENANCE Final Result * [...] Most Recently Relevant to Health Maintenance Insurance [facility] Care Teams Lard Refiner Relationship Specialty Start Date End Date Ge Interiano MD [address] [place] [address] PCP - General Internal Medicine 06/23/21
--- NOTE | 2025-07-12 12:22 | EMG_ITS ---
Bilateral median and ulnar motor studies were performed. Bilateral median and ulnar mixed sensory studies were performed bilateral tibial H reflexes were performed bilateral superficial peroneal sensory, sural sensory and radial sensory studies were performed. EMG needle examination was performed. Findings: Right median motor latencies were significantly diminished with moderately delayed distal latencies and normal conduction velocity. Bilateral peroneal and tibial motor responses were absent. Radial sensory studies were normal. Right superficial peroneal sensory conduction velocity was slow. Left sural was absent in right sural conduction velocity was slow. Right median distal latencies was slightly prolonged. F responses in upper extremities were falling with a normal range. In lower extremities there were mostly absent. H reflexes were absent. Needle examination revealed long duration polyphasic potential left tibialis anterior, extensor digitorum brevis, gastrocnemius, and short head of biceps. There were also noted in bilateral 1st dorsal interosseous, extensor indicis, triceps, biceps, and deltoid. There were not noted in high or gliosis. Impression: Very abnormal study suggesting widespread motor nerve injury with mild involvement of sensory nerves, chronic in nature, suggestive of motor neuron disease. Severe axonal loss or loss of amplitude some motor conduction velocities can happened with motor neuron disease but also raises possibility of alternate diagnoses such as multifocal motor neuropathy with conduction blocks. MTDD
--- NOTE | 2025-07-12 12:22 | EMG_ITS ---
Chief complaint:?G12.20 Motor neuron disease unspecified Reason for referral: Weakness Referred by:?Dr Maldonado Procedure done: Bilateral upper extremities and left lower extremity [place] [address] 3 extremities MTDD
== END 2025-07-12 10:09 | disposition home or self-care (01) ==
LOC: HO.NEURO 10:08
PROVIDERS: PCP Internal Medicine; Visit Provider Psychiatry & Neurology Neurology
DX: G12.20 Motor neuron disease, unspecified (principal)
CPT/HCPCS: 95860; 95886; 95907; 95913

== ENCOUNTER 2025-07-12 12:20 | Outpatient (AMB) | payer BC, SELFPAY ==
--- NOTE | 2025-07-12 12:20 | A.OFFVIS_ITS ---
Intake Visit Reasons: follow up Allergies No Known Allergies Allergy (Verified 06/26/25 13:55) HPI Comments Details: 60 years old man, a safety instruction police officer and [place], with family history of ALS, his father and some other relative suffering from it, developed right foot weakness in February of 2025. There was no preceding illness or injury. Initially is it was thought to be a sciatica type of problem. A lumbosacral MRI was done, which did not reveal any significant explanation. An EMG nerve conduction study was performed of right leg, which suggested a more proximal problem Meri pelvic MRI was obtained to rule out plexus lesion. This MRI was also negative. With that information I asked him to come to office for further electrophysiological evaluation to check his other extremities and 2 make sure there was no evidence of generalized problem or generalized motor neuron disease. He was here today for that testing and then conference afterwards. His sister was with him. We spent couple of hours with this consultation. [facility] Medical History (Updated 07/12/25 @ 12:38 by Gloria Maldonado MD) Red-green color blindness Incomplete RBBB Review of Systems Narrative Constitutional:? Generalized weakness and fatigue HEENT:?No headache, vision changes, hearing loss, nasal congestion, sore throat. Neurological:? In terms of focal weakness, he has not noted any arm weakness but reported left leg weakness. He was in wheelchair not able to walk. Psychiatric:? Feeling depressed Endocrine:?No heat/cold intolerance, polydipsia, polyuria, or hair/skin changes. Hematologic/Lymphatic:?No easy bruising, bleeding, or lymphadenopathy. Integumentary (Skin):?No rash, lesions, itching, or color changes. ? Physical Exam Neuro Other: Mental Status: Alert and awake with normal spontaneity of speech fluency comprehension and depressed affect. Cranial Nerves: CN II: Visual campbell full to confrontation, visual acuity intact. CN III, IV, : Pupils equal, round, reactive to light and accommodation. Extraocular movements are normal. CN V: Facial sensation is normal. CN VII: Facial movements symmetrical. CN VIII: Hearing intact to bedside conversation is normal. CN IX, X: Palate elevates symmetrically. CN XI: Shoulder shrug and head turn symmetrical. CN XII: Tongue midline without atrophy or fasciculations. Motor: Diffuse muscle atrophy in feet was noted though right foot was with a edema. Deep tendon reflexes were 1 to 2+ in arms and knees and trace to absent in ankle s. Right plantars was flat while lift was extensor. There was mild atrophy of bilateral intrinsic hand muscles. No definite fasciculations were noted. Gait and Station: In wheelchair. Extrapyramidal: Full facial expressions and blinking. No rigidity. Movements are appropriate with no tremor or abnormality. Speech: Normal; no dysarthria or tremor. Assessment & Plan Assessment & Plan (1) ALS (amyotrophic lateral sclerosis): Code(s): G12.21 - Amyotrophic lateral sclerosis Category: Medical (2) Motor neuron disease: Comment: EMG/NCS arms and left leg in Jun 2025: Widespread long duration tall MUAPs, sporadic fasiculations/PSWs MR Pelvis in [facility] in Jun 2025: No sign of LS plexus lesion. Sacral abnormality, probably from a recent fracture EMG/NCS R leg at [facility] in Jun 2025: R lumbar radiculopathy/sciatic neuropathy MRI LS spine WO at [facility] in May 2025: No sig pathology Code(s): G12.20 - Motor neuron disease, unspecified Category: Medical Plan 60 years old man was clinical picture and electrophysiological parameters are suggestive of ALS/motor neuron disease. On today's examination, which is even different from an exam few days ago with appearance of upper motor neuron sign. I had a detailed conversation with him in his sister. He was most afraid of this diagnosis because of his family history. I had already started him on an antidepressant and advised to continue it. I am also starting him on a specific medicine for ALS, which is shown to somewhat slow down the process. He would require number of services and help from multiple areas. I would tried to give a call to his primary care's office to see if some of those things can be started or arranged. I would continue to follow-up with him. He was also advised to have specific health proxy defined on paper. Medications: New edaravone (Radicava ORS Starter Kit Suspension) 105 mg (5 mL) PO QAM 70 mL 0RF 1 4 days Coding Level of Care Code Est Pt Level 5 (39988) Diagnoses ALS (amyotrophic lateral sclerosis) G12.21 Motor neuron disease G12.20
== END 2025-07-12 13:34 | disposition home or self-care (01) ==
LOC: HO.HSM 12:21
PROVIDERS: PCP Internal Medicine; Visit Provider Psychiatry & Neurology Neurology
DX: G12.21 Amyotrophic lateral sclerosis (principal); G12.20 Motor neuron disease, unspecified
CPT/HCPCS: 95885; 95886; 95913; 99214